=== PATIENT | female | born 1970 | race Caucasian/White ===

== ENCOUNTER → 2018-07-12 16:01 | Outpatient (CLI) | payer OTHER, SELFPAY ==
--- NOTE | 2018-07-12 16:45 | MRI_ITS ---
STUDY: MRI RIGHT ANKLE WITHOUT CONTRAST REASON FOR EXAM: Female, 47 years old. Right-sided ankle sprain with anterior ankle pain for 4 weeks. TECHNIQUE: Standardized fat and water weighted pulse sequences were obtained in all 3 orthogonal planes. COMPARISON: Prior comparison studies are not available for review at this time. FINDINGS: Normal subcutis adipose space. Normal posterior tibialis tendon. Normal flexor digitorum longus tendon. Normal flexor hallucis longus tendon. Normal peroneus longus and brevis tendons. Normal tibialis anterior tendon. Normal extensor hallucis longus tendon. Normal extensor digitorum longus tendons. There is tendinosis of the Achilles tendon with diffuse tendon thickening, but without a partial, intratendinous, or full-thickness tear. There is thickening of the central cord of the plantar fascia, without a plantar fasciitis or plantar fascial tear, consistent with plantar fascial degeneration. There is a plantar calcaneal spur, but without cancellous marrow edema. Normal intrinsic muscles of the rearfoot. There appears to be a complete tear of the tibiofibular syndesmosis. There also appears to be disruption of the anterior talofibular ligament. Normal subtalar ligaments and sinus tarsi. Normal deltoid ligamentous complexes. Normal plantar calcaneonavicular (spring) ligament. Normal tibiotalar articulation. Normal talar dome. There appear to be erosive changes involving the talus at the calcaneal articulation. Erosions are also visible at the tibial plafond. There are also areas of abnormal signal between the articulations of the cuboid with the fifth and fourth metatarsals as well as articulations between the cuneiforms and metatarsals where there appear to be additional erosions. Does the patient have an inflammatory arthropathy? There appear to be degenerative changes at the talonavicular reticulation with bridging osteophytes and/or enthesophytes. Normal calcaneocuboid articulation. Normal navicular-cuneiform articulations. MRI/Lower Ext Joint Only (Routine) IMPRESSION: 1. Complete disruption of the anterior tibiofibular ligaments as well as the anterior talofibular ligament. 2. Multiple erosive changes at the subtalar articulations, tarsometatarsal articulations, and at the tibial plafond with associated abnormal marrow signal. 3. Sequela of Achilles tendinopathy and plantar fasciitis. 4. Incidental note is made of prominent varicosities of the medial ankle. Electronically Signed: Gabby Garcia MD at 9:25 EDT , Service support ,
--- NOTE | 2018-07-12 17:30 | MRI_ITS ---
HISTORY: RIGHT foot pain regla area of 1st toe, sprain , injury 4 weeks ago TECHNIQUE: Multiplanar and multisequence MR images of the right foot. IV Contrast dosage and agent: COMPARISON: None FINDINGS: Osteoarthritis of the right first MTP joint with small effusion. Asymmetric edema of the medial sesamoid compatible with chronic sesamoiditis or possibly healing fracture. Adjacent localized subcortical cyst formation and edema of the plantar and medial aspect of the first MTP head. The plantar plates appear intact. No tenosynovitis or tendinosis. No Tucker's neuroma. MRI/Lower Ext/No Jt/w/o IMPRESSION: 1. Osteoarthritis with small effusion of the right first MTP joint. Details above. 2. Asymmetric edema of the medial sesamoid, first MTP joint, representing reactive sesamoiditis or possibly healing sesamoid fracture. at [id number] Reported and signed by: Cristobal Yuan MD Electronically Signed: Cristobal Yuan, at 4:44 EDT Tel , Service support ,
== END ==
PROVIDERS: Family Provider Family Medicine; PCP Family Medicine; Referring Provider Family Medicine; Visit Provider Family Medicine
DX: S93.601A Unspecified sprain of right foot, initial encounter (principal); S93.401A Sprain of unspecified ligament of right ankle, initial encounter
CPT/HCPCS: 73718; 73721

== ENCOUNTER → 2018-08-01 10:59 | Outpatient (CLI) | payer OTHER, SELFPAY ==
[2018-08-01 10:23] VITALS: BMI 23.6
[2018-08-01 12:18] LABS: Absolute Lymphocyte Count 1.22 X10^3/ul (0.83-4.51); Absolute Neutrophil Count 2.7 X10^3/uL (2.0-7.7); Hematocrit 42.3 % (37-47); Hemoglobin 14.3 g/dl (12.0-15.0); Lymphocyte # 1.22 X10^3/ul (4.0); Lymphocyte % 28.9 % (19-41); Mean Corp Hgb Conc 33.8 g/gl (32-36); Mean Corpuscular Hgb 31.8 pg (27.0-32.0); Mean Platelet Vol. 10.8 fl (6.2-12.0); Monocyte# 0.32 X10^3/uL; Monocyte% 7.6 % (0-10); Neutrophil # 2.68 X10^3/uL (2.7-7.7); Neutrophil % 63.5 % (47-70); Platelet Count 199 K/mm3 (150-450); RBC Distribution Width SD 45.1 fl (35.1-43.9); White Blood Count 4.2 K/mm3 (4.4-11.0)
[2018-08-01 12:29] LABS: POSITIVE COUNT NO; POSITIVE DIFFERENTIAL NO; POSITIVE MORPHOLOGY NO
[2018-08-01 12:40] LABS: ALB/GLOB Ratio 1.4 RATIO (0.9-2.4); AST(SGOT) 13 U/L (15-37); Alanine Aminotransfer ALT/SGPT 19 U/L (13-56); Alkaline Phosphatase 61 U/L (45-117); Anion Gap 7 (5-15); BUN 16 mg/dL (7-18); BUN/Creat Ratio 19.6 RATIO (10-20); Calcium,Total 8.7 mg/dL (8.5-10.1); Chloride 104 mmol/L (98-107); Creatinine, Serum 0.82 mg/dL (0.55-1.02); EST Glomerular Filtration Rate 79 mL/min (>60); Est Glom Filt Rate - Afr Amer 95 mL/min (>60); Globulin 2.9 g/dL (2.2-4.2); Glucose 90 mg/dL (74-106); Potassium 4.4 mmol/L (3.5-5.1); Protein, Total 6.9 g/dL (6.4-8.2); Sodium Level 140 mmol/L (136-145); Thyroid Stim Hormone (TSH) 3.69 uIU/mL (0.358-3.74)
== END ==
PROVIDERS: Family Provider Family Medicine; PCP Family Medicine; Visit Provider Nurse Practitioner Family
DX: Z01.818 Encounter for other preprocedural examination (principal)
CPT/HCPCS: 36415; 80053; 84443; 85025

== ENCOUNTER → 2018-08-07 09:47 | Outpatient (CLI) | payer OTHER, SELFPAY ==
[2018-08-01 10:23] VITALS: BMI 23.6
== END ==
PROVIDERS: Family Provider Family Medicine; PCP Family Medicine; Referring Provider Nurse Practitioner Family; Visit Provider Nurse Practitioner Family
DX: G47.10 Hypersomnia, unspecified (principal); R06.83 Snoring
CPT/HCPCS: 95806

== ENCOUNTER 2018-08-27 09:22 | Day surgery (SDC) | payer OTHER, SELFPAY ==
[2018-08-01 10:23] VITALS: BMI 23.6
[2018-08-26 10:11] VITALS: BMI 23.2
[2018-08-27] VITALS (9 sets, daily range): BP systolic 116–128; BP diastolic 72–87; PULSE 60–83; RESP 16–18; TEMP 36.3–36.6; O2SAT 100; BMI 24.1
--- NOTE | 2018-08-27 09:37 | EKG12_ITS ---
Test Reason : PREOP Blood Pressure : / mmHG Vent. Rate : 067 BPM Atrial Rate : 067 BPM P-R Int : 170 ms QRS Dur : 072 ms QT Int : 396 ms P-R-T Axes : 040 054 054 degrees QTc Int : 418 ms Normal sinus rhythm with sinus arrhythmia Normal ECG No previous ECGs available Confirmed by FABIEN CABRERA ([id number]), assistant film editor JUDY NEGRON ([id number]) on 09/02/2018 2:35:42 PM Referred By: Herminia Rosario Confirmed By:GLORIA CABRERA
[2018-08-27] MEDS: Cefazolin 2 GM in 0.9% Normal Saline 100 ML IV (10:53)
--- NOTE | 2018-08-27 11:05 | RAD_ITS ---
STUDY: Fluoroscopy 6 views RIGHT ANKLE REASON FOR EXAM: Female, 47 years old. Intraoperative 6 view study right ankle TECHNIQUE: 6 fluoroscopic view(s) of the ankle. The provided fluoroscopy time 73.5 seconds. COMPARISON: None. FINDINGS: An intraoperative series is provided with fluoroscopy demonstrating open reduction internal fixation of the right ankle. RAD/Ankle min 3 Views IMPRESSION: Intraoperative study showing the progress of open reduction internal fixation right ankle. Electronically Signed: Livier Bates MD at 19:50 EDT Tel , Service support ,
--- NOTE | 2018-08-27 12:48 | DCINST_ITS ---
Discharge Activity: May Not Drive, May not drive while taking narcotic pain medications., May Not Shower, Use Walker, Use Crutches Ice area for (Minutes): 20 - apply ice behind right knee 20 minutes of each hour while awake Weight Bearing Status: No weight bearing Keep extremity elevated above heart level: Operative Extremity Call your doctor if your incision/area has: Sudden Increased Bleeding Call your doctor if you observe: Fever of 101 or Higher, Shortness of breath, Dizziness, Chest pain, Increased palpitations (irregular heartbeat), Calf discomfort, Uncontrolled pain Cleanse incision/area with: Keep Dressing Clean & Dry Allergies/Adverse Reactions: Allergies No Known Allergies Allergy (Verified 08/27/18 10:00) Medications to take at Discharge Ibuprofen 600 mg PO PRN PRN 08/21/18 Hydrocodone Bitart/Apap 5-325 [Sargeant 5MG-325MG] 1 tab PO Q4H PRN PRN 7 Days #28 tab 08/27/18 The following prescriptions were given: Hydrocodone Bitart/Apap 5-325 [Sargeant 5MG-325MG] 1 tab PO Q4H PRN PRN 7 Days #28 tab PRN Reason: Pain Primary Care Physician: Topher Vidal DO [Primary Care Provider] - Test Results: Test results from this visit will be discussed in further detail at your follow- up appointment, if applicable. Please Follow Up With: Herminia Rosario DPM When: Please follow up next week at your previously scheduled post operative appt Proposed Discharge Date: 08/27/18
--- NOTE | 2018-08-27 12:48 | PCM.OPRPT ---
Report of Operation Date of Procedure: 08/27/18 Pre-Operative Diagnosis: R ATFL complete rupture, R syndesmotic disruption/rupture Post-Operative Diagnosis: same Surgery/Procedure Performed:: R ankle stress views on intraoperative fluoroscopy; R modified Brostrum repair; R trans-syndesmotic screw fixation Description of Surgical Findings:: see dictation immigration lawyer: Dipak Solomon Type of Anesthesia:: General/Regional Estimated Blood Loss (mL): minimal Description of Procedure: Indications: Pt hardy saavedra is a 47 yo F who sustained a right ankle injury while at work on June 11, 2018. She was seen by a physician who diagnosed her with an ankle sprain and she was treated for several weeks conservatively. When her symptoms did not improve as expected she was sent for an MRI on 07/12/2018 which revealed a torn ATFL and syndesmosis. She presented to my office and surgical intervention was discussed and planned. She presents today for surgical intervention. All risks, complications, and alternatives were discussed with the patient, and the patient signed an informed consent. No guarantees were given. Procedure: On 08/27/18, Araceli Og was visually and verbally identified in the preoperative holding area. The consent form was again reviewed with the patient, as were all risks, complications, and alternatives and the patient wished to proceed with the proposed surgery. The right was marked as the correct operative extremity. The patient was brought to the operating room and placed on the operating room table in the normal SUPINE position. After induction by anesthesia, a surgical time out was performed and all present were in agreement. a pneumatic thigh tourniquet was then placed. At this time the right lower extremity was prepped and draped in the usual sterile fashion. after exsanguination with an esmarch the tourniquet was inflated to 300 mmHg. At this time attention was directed to the right lateral ankle. Using a #15 blade a curvilinear incision was made over the distal fibula and extending distally to exposed the ATFL insertion site on the fibula tip.The incision was bluntly carried deep through the subcutaneous tissues with careful attention paid to all bleeders, which were clamped and tied or bovied as necessary. All vital neurovascular structures were retracted. The ATFL was noted to be attenuated. a lateral view of the ankle was performed and then compared to the anterior drawer stress view and the anterior drawer was noted to be positive. I returned to the AP position. I then performed varus and valgus stress views which were negative. Using a bone hook at the tibiofibular joint I performed a cotton stress view that showed increased gapping of the syndesmosis. The incision was carried proximally to better exposed the distal fibula for screw fixation. A malleoloar reduction clamp was applied. Two 3.5mm cortical screws were placed from the lateral fibula to the medial cortex of the tibia. The screws were parallel to the tibiotalar joint and across tibiofibular joint. Good fixation was noted. The cotton hook test was repeated and no syndesmotic gapping was noted. Attention was then returned to the distal fibula/ATFL. Two Drift Sonic Anchors were placed in line with the orientation of the ATFL with Fiber Force. The anchors had a solid fixation. A modified Brostrum was then performed in a pants over vest fashion while the foot was held in eversion. The anterior stress view was repeated and negative. The incision was flushed with copious amounts of normal sterile saline and closure was initiated. 2.0 vicryl was used for deep tissues, 3.0 vicryl for subcutaneous tissues and 3.0 prolene for skin. Betadine soaked adaptic and dry, sterile dressings were placed on the incision. While the foot was held in eversion, a multi-layer compressive dressing was applied to aid in reduction of edema and pain with a well padded posterior splint. Total tourniquet time was 70 minutes with immediate capillary refill noted to all digits upon deflation. Intra operative fluoroscopy was utilized throughout the case, > 1 hour, to aid in visualization and confirmation of screw position and length as well as for stress view pre and post repair. Interpretation of the images was vital to my decision making process. The patient tolerated the procedure and anesthesia well. The patient was then transported to the postanesthesia care unit by a member of the anesthesia team and myself with all vital signs stable and neurovascular status of the right lower extremity equal to pre-operative levels. At the end of the case all sponge, needle and instrument counts were found to be correct. Grafts/Implants Used: Isaiah 3.5mm screws x 2; Isaiah Sonic [place] with Fiber Force x 2 - Complications none - Admit VTE Documentation VTE Present on Admission: No VTE Mechan Device Prophylaxis: SCD's, Knee High GERRY Hose VTE Pharm Prophylaxis ordered?: Yes
--- NOTE | 2018-08-27 12:50 | RAD_ITS ---
STUDY: X-RAY - RIGHT ANKLE REASON FOR EXAM: Female, 47 years old. Postoperative. TECHNIQUE: 3 view(s) of the ankle. COMPARISON: None. FINDINGS: 2 osseous screws are seen spanning the distal tibiofibular junction. No evidence of hardware failure or loosening. Ankle mortise appears intact. No discrete fracture noted throughout. Overlying cast material is noted. Soft tissue swelling is seen. RAD/Ankle min 3 Views IMPRESSION: As detailed above Electronically Signed: Kenneth Golden DO at 14:02 EDT Tel , Service support ,
[2018-08-27] MEDS: Ketorolac 15 MG/ML Vial IV (12:53)
[2018-08-27] MEDS: Scopolamine 1mg/72hr Patch 1 PATCH TD (15:50)
== END 2018-08-27 17:50 | disposition home or self-care (01) ==
LOC: SDC 09:25 → AC 09:26
PROVIDERS: Family Provider Family Medicine; PCP Family Medicine; Referring Provider Podiatrist Foot & Ankle Surgery; Visit Provider Podiatrist Foot & Ankle Surgery
PROC: (CPT 27698; principal; 2018-08-27 10:45)
DX: S93.431A Sprain of tibiofibular ligament of right ankle, initial encounter (principal); X58.XXXA Exposure to other specified factors, initial encounter; Y93.89 Activity, other specified; Y92.89 Other specified places as the place of occurrence of the external cause; Y99.0 Civilian activity done for income or pay; S93.491A Sprain of other ligament of right ankle, initial encounter; R40.0 Somnolence; R06.83 Snoring; D22.9 Melanocytic nevi, unspecified
CPT/HCPCS: 27698; 27829; 64445; 73610; 76000; 93005; C1713; J7120; J2405

== ENCOUNTER → 2018-11-22 | Outpatient (CLI) | payer OTHER, SELFPAY ==
[2018-11-22 07:43] VITALS: BMI 24.1
[2018-11-22 12:27] LABS: Erythrocyte Sedimentation Rate 1 mm/hr (0-30)
[2018-11-22 12:53] LABS: Rheumatoid Factor < 10.0 IU/mL (<15)
[2018-11-26 14:07] LABS: ANTINUCLEAR ANTIBODIES DIRECT Negative (Negative)
[2018-11-26 14:28] LABS: CCP IgG Antibodies 5 units (0-19)
== END | disposition home or self-care (01) ==
LOC: BIMLAB 08:23
PROVIDERS: Family Provider Family Medicine; PCP Family Medicine; Visit Provider Nurse Practitioner Family
DX: M25.571 Pain in right ankle and joints of right foot (principal); M79.89 Other specified soft tissue disorders
CPT/HCPCS: 36415; 85652; 86038; 86200; 86225; 86235; 86431

== ENCOUNTER → 2019-06-09 09:57 | Outpatient (CLI) | payer OTHER, SELFPAY ==
[2019-05-28 14:17] VITALS: BMI 23.4
[2019-06-09 12:35] LABS: Cholesterol 193 mg/dL (200); High Density Lipoprotein 76 mg/dL; Triglycerides 40 mg/dL; Very Low Density Lipoprotein 8 mg/dL (5-40)
[2019-06-09 13:19] LABS: Hepatitis C Antibody Non-Reactive (Nonreactive)
== END ==
PROVIDERS: PCP Family Medicine; Referring Provider Family Medicine; Visit Provider Family Medicine
DX: Z00.00 Encounter for general adult medical examination without abnormal findings (principal)
CPT/HCPCS: 36415; 80061; 86803

== ENCOUNTER 2019-07-09 10:19 | Day surgery (SDC) | payer OTHER, SELFPAY ==
[2019-05-28 14:17] VITALS: BMI 23.4
[2019-06-11 10:14] VITALS: BMI 23.4
--- NOTE | 2019-06-25 10:10 | EKG12_ITS ---
Test Reason : PRE-OP Blood Pressure : / mmHG Vent. Rate : 065 BPM Atrial Rate : 065 BPM P-R Int : 160 ms QRS Dur : 082 ms QT Int : 386 ms P-R-T Axes : 028 035 042 degrees QTc Int : 401 ms Normal sinus rhythm Normal ECG Confirmed by ALL SINGH ([id number]), editorial assistant JESSA JAY ([id number]) on 06/25/2019 3:08:09 PM Referred By: Jose Garcia Confirmed By:ALL SINGH
[2019-06-25 10:34] LABS: Absolute Lymphocyte Count 1.27 X10^3/uL (0.83-4.51); Absolute Neutrophil Count 2.9 X10^3/uL (2.0-7.7); Hematocrit 40.9 % (37-47); Hemoglobin 13.7 g/dL (12.0-15.0); Lymphocyte # 1.27 X10^3/ul (4.0); Lymphocyte % 28.4 % (19-41); Mean Corp Hgb Conc 33.5 g/dL (32-36); Mean Corpuscular Hgb 30.9 pg (27.0-32.0); Mean Corpuscular Volume 92.3 fL (81-99); Mean Platelet Vol. 10.2 fl (6.2-12.0); Monocyte# 0.33 X10^3/uL; Monocyte% 7.4 % (0-10); NRBC Flagged by Analyzer 0 % (0-5); Neutrophil # 2.86 X10^3/uL (2.7-7.7); Platelet Count 186 K/mm3 (150-450); RBC Distribution Width CV 12.3 % (11.6-14.6); RBC Distribution Width SD 42.1 fl (35.1-43.9); Red Blood Count 4.43 M/mm3 (4.2-5.4); White Blood Count 4.5 K/mm3 (4.4-11.0)
--- NOTE | 2019-06-25 10:38 | RAD_ITS ---
STUDY: X-RAY CHEST REASON FOR EXAM: Female, 48 years old. Pre-op for pelvic surgery TECHNIQUE: PA and lateral views of the chest. COMPARISON: 2008 FINDINGS: The lungs are clear and expanded. There is no demonstrated pleural abnormality. Normal size heart. Normal mediastinum and alcira. Normal visualized pulmonary arteries. Normal visualized aortic arch and descending thoracic aorta. Normal visualized thoracic spine. Normal visualized ribs, clavicles, and shoulders. There is no demonstrated abnormality of the visualized soft tissue structures of the upper abdomen. RAD/Chest PA and Lateral IMPRESSION: Normal x-ray examination of the chest. Electronically Signed: Isaiah Leon MD at 10:49 EST , Service support ,
[2019-06-25 10:44] LABS: International Normalized Ratio 1.1; Partial Thromboplast Time 27.6 Seconds (24.1-36.2); Prothrombin Time (Protime)PT. 13.6 SECONDS (11.7-14.9)
[2019-06-25 11:02] LABS: ALB/GLOB Ratio 1.4 RATIO (0.9-2.4); AST(SGOT) 13 U/L (15-37); Alanine Aminotransfer ALT/SGPT 21 U/L (13-56); Albumin, Serum 4.2 g/dL (3.2-5.0); Alkaline Phosphatase 64 U/L (45-117); Anion Gap 4 (5-15); BUN 15 mg/dL (7-18); BUN/Creat Ratio 17.6 RATIO (10-20); Calcium,Total 8.9 mg/dL (8.5-10.1); Chloride 106 mmol/L (98-107); Creatinine, Serum 0.85 mg/dL (0.55-1.02); EST Glomerular Filtration Rate 75 mL/min (>60); Est Glom Filt Rate - Afr Amer 90 mL/min (>60); Glucose 71 mg/dL (74-106); Potassium 4.3 mmol/L (3.5-5.1); Protein, Total 7.2 g/dL (6.4-8.2); Sodium Level 140 mmol/L (136-145)
[2019-06-25 11:28] LABS: Hemoglobin A1c 5.5 % (4.2-6.3)
[2019-07-09 10:40] VITALS: BP 117/67; PULSE 64; RESP 15; TEMP 36.7; O2SAT 100; BMI 23.6
[2019-07-09] MEDS: Lactated Ringers 1,000 ML 100 ML IV ×2 (10:50→15:35)
--- NOTE | 2019-07-09 12:00 | RAD_ITS ---
STUDY: X-RAY - RIGHT ANKLE REASON FOR EXAM: Female, 48 years old. RIGHT ANKLE JOINT ARTHRO W REPAIR, TARSAL TUNNEL RELE TECHNIQUE: 1 view(s) of the ankle. COMPARISON: Prior study of 08/27/2018 FINDINGS: Single intraoperative view There has been interval removal of 2 screws traversing the distal fibular and tibial metaphyses on the previous study. Normal medial and lateral malleoli. Normal tibiotalar articulation and ankle mortise. Normal visualized talus and calcaneus. The visualized subtalar, talonavicular, calcaneocuboid and tarsal articulations are normal. The soft tissue structures are unremarkable. RAD/Ankle 2 Views IMPRESSION: Interval removal of orthopedic screws traversing the distal fibular and tibial metaphyses on the previous study. A total of 33 seconds of fluoroscopy time was used. Estimated radiation dose 0.336 mGy. Electronically Signed: Oswaldo Belcher MD at 16:20 EDT , Service support ,
[2019-07-09] MEDS: Cefazolin 2 GM in 0.9% Normal Saline 100 ML IV (12:15)
[2019-07-09 15:26] VITALS: BP 117/67; BP 97/66; PULSE 66; RESP 16; TEMP 36.8; O2SAT 99
--- NOTE | 2019-07-09 15:29 | DCINST_ITS ---
Discharge Diet: No Restrictions Discharge Activity: May Not Drive, May Not Shower, Use Walker, Use Crutches Weight Bearing Status: No weight bearing Keep extremity elevated above heart level: Right Leg Additional Activity Instructions:: 1. Keep the dressing clean, dry, intact to the right foot leg. Do not get dressing wet and do not remove dressing. If get dressing wet, call office for further instructions. I recommend sponge bathing until further notice. Ice around right knee 20 minutes on, 20 minutes off, every hour while you are awake for the next 7 days. Elevate right foot above level of heart as much as possible over the next 7 days. No walking or standing on right foot. Use crutches or walker for assistance. Begin taking Percocet (pain medication) July 08. Can supplement Percocet with [id number] ibuprofen as needed. If you do take ibuprofen, please take with food. Begin taking the aspirin 1 time a day tomorrowJuly 09. Begin taking doxycycline (antibiotic) tomorrow, July 09. This will be twice a day. Call your doctor if your incision/area has: Continuous Slow Oozing, Increased Pain/ Swelling Call your doctor if you observe: Fever of 101 or Higher, Coldness, Increased Pain, Shortness of breath, Dizziness, Chest pain, Increased palpitations (irregular heartbeat), Calf discomfort, Uncontrolled pain Cleanse incision/area with: Do not get Incision Wet, Keep Dressing Clean & Dry Allergies/Adverse Reactions: Allergies No Known Allergies Allergy (Verified 07/09/19 10:39) Medications to take at Discharge Ibuprofen 600 mg PO PRN PRN 08/21/18 Primary Care Physician: Topher Vidal DO [Primary Care Provider] - Test Results: Test results from this visit will be discussed in further detail at your follow- up appointment, if applicable. Please Follow Up With: Jose Garcia DPM When: 1 week Proposed Discharge Date: 07/09/19
[2019-07-09 15:30] VITALS: BP 117/67; BP 97/78; PULSE 62; RESP 16; O2SAT 98
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
--- NOTE | 2019-07-09 15:40 | RAD_ITS ---
STUDY: X-RAY - RIGHT ANKLE REASON FOR EXAM: Female, 48 years old. POST OP HARDWARE REMOVAL TECHNIQUE: 2 view(s) of the ankle. COMPARISON: Previous study of earlier this date FINDINGS: There are demonstrated cortical defects in the distal tibial and fibular metaphyses where orthopedic hardware previously existed. Normal medial and lateral malleoli. Normal tibiotalar articulation and ankle mortise. There is a plantar aspect calcaneal spur. The visualized subtalar, talonavicular, calcaneocuboid and tarsal articulations are normal. The soft tissue structures are unremarkable. RAD/Ankle 2 Views IMPRESSION: Cortical defects of the distal tibial and fibular metaphyses where orthopedic hardware had previously existed. No fracture is identified. Electronically Signed: Oswaldo Belcher MD at 16:09 EDT , Service support ,
[2019-07-09 15:46] VITALS: BP 110/52; BP 117/67; PULSE 63; RESP 16; TEMP 36.8; O2SAT 97
[2019-07-09] MEDS: traMADol 50 MG Tablet PO (16:09)
[2019-07-09 16:55] VITALS: BP 105/64; BP 117/67; PULSE 66; RESP 16; TEMP 37.2; O2SAT 100
== END 2019-07-09 17:03 | disposition home or self-care (01) ==
LOC: SDC 10:20 → AC 10:21
PROVIDERS: PCP Family Medicine; Referring Provider Podiatrist Foot & Ankle Surgery; Visit Provider Podiatrist Foot & Ankle Surgery
DX: T84.84XA Pain due to internal orthopedic prosthetic devices, implants and grafts, initial encounter (principal); Y83.1 Surgical operation with implant of artificial internal device as the cause of abnormal reaction of the patient, or of later complication, without mention of misadventure at the time of the procedure; Z47.2 Encounter for removal of internal fixation device; G57.51 Tarsal tunnel syndrome, right lower limb; M19.071 Primary osteoarthritis, right ankle and foot; M21.961 Unspecified acquired deformity of right lower leg
CPT/HCPCS: 20680; 28035; 29898; 36415; 71046; 73600; 76000; 80053; 83036; 85025; 85610; 85730; 93005; J7120; J2405; J3490

== ENCOUNTER → 2020-09-08 14:56 | Outpatient (CLI) | payer OTHER, SELFPAY ==
[2020-09-08 14:29] VITALS: BMI 23.6
[2020-09-08 16:32] LABS: Absolute Lymphocyte Count 1.48 X10^3/uL (0.83-4.51); Absolute Neutrophil Count 3.2 X10^3/uL (2.0-7.7); Hemoglobin 13.7 g/dL (12.0-15.0); Lymphocyte # 1.48 X10^3/ul (0.83-4.51); Mean Corp Hgb Conc 33.4 g/dL (32-36); Mean Corpuscular Hgb 31.7 pg (27.0-32.0); Mean Corpuscular Volume 94.9 fL (81-99); Mean Platelet Vol. 10.1 fl (6.2-12.0); Monocyte% 7.8 % (0-10); NRBC Flagged by Analyzer 0 % (0-5); Neutrophil # 3.21 X10^3/uL (2.7-7.7); Neutrophil % 62.8 % (47-70); Platelet Count 219 K/mm3 (150-450); RBC Distribution Width CV 12.3 % (11.6-14.6); RBC Distribution Width SD 43.1 fl (35.1-43.9); Red Blood Count 4.32 M/mm3 (4.2-5.4); White Blood Count 5.1 K/mm3 (4.4-11.0)
[2020-09-08 16:44] LABS: ALB/GLOB Ratio 1.3 RATIO (0.9-2.4); AST(SGOT) 18 U/L (15-37); Alanine Aminotransfer ALT/SGPT 25 U/L (13-56); Alkaline Phosphatase 73 U/L (45-117); Anion Gap 3 (5-15); BUN 12 mg/dL (7-18); BUN/Creat Ratio 14.1 RATIO (10-20); Calcium,Total 9.2 mg/dL (8.5-10.1); Chloride 106 mmol/L (98-107); Cholesterol 233 mg/dL (200); Creatinine, Serum 0.85 mg/dL (0.55-1.02); EST Glomerular Filtration Rate 74 mL/min (>60); Est Glom Filt Rate - Afr Amer 90 mL/min (>60); Globulin 3.1 g/dL (2.2-4.2); Glucose 88 mg/dL (74-106); High Density Lipoprotein 89 mg/dL; Potassium 3.9 mmol/L (3.5-5.1); Protein, Total 7.1 g/dL (6.4-8.2); Sodium Level 141 mmol/L (136-145); Triglycerides 51 mg/dL; Very Low Density Lipoprotein 10 mg/dL (5-40)
== END ==
PROVIDERS: PCP Family Medicine; Referring Provider Family Medicine; Visit Provider Family Medicine
DX: Z00.00 Encounter for general adult medical examination without abnormal findings (principal); I83.819 Varicose veins of unspecified lower extremity with pain; E78.49 Other hyperlipidemia; R51.9 Headache, unspecified
CPT/HCPCS: 36415; 80053; 80061; 85025

== ENCOUNTER → 2020-12-16 | Outpatient (CLI) | payer OTHER, SELFPAY ==
[2020-12-16 09:40] LABS: Mucous, Urine 0 SEEN /hpf (<or=2+)
[2020-12-16 11:16] LABS: Color, Urine Yellow (Yellow); Glucose, Dipstick Normal (Normal); Ketone-Dipstick Negative (Negative); Leukocyte Esterase-Dipstick 500 /ul (Negative); Nitrite-Dipstick Positive (Negative); Occult Blood-Urine 10 /ul (Negative); Protein-Dipstick Negative (Negative); Urine Bilirubin Dipstick Negative (Negative); Urine Clarity Sl. Cloudy (Clear); Urine Urobilinogen Normal (Normal); Urine pH 6.5 (5.0 - 8.0)
[2020-12-16 11:24] LABS: Bacteria 1+ /hpf (None Seen); Red Blood Cells-Urine 0-5 SEEN /hpf (0-5); Squamous Epithelial Cells - UA 0-5 SEEN /hpf (5-10); White Blood Cells 25-50 SEEN /hpf (0-5)
== END | disposition home or self-care (01) ==
LOC: LABSPEC 09:38
PROVIDERS: PCP Family Medicine; Referring Provider Nurse Practitioner Family; Visit Provider Nurse Practitioner Family
DX: R30.0 Dysuria (principal)
CPT/HCPCS: 81001; 87086; 87088; 87186

== ENCOUNTER → 2021-09-28 | Outpatient (CLI) | payer BC, SELFPAY ==
[2021-09-28 16:50] LABS: Absolute Lymphocyte Count 1.24 X10^3/uL (0.83-4.51); Absolute Neutrophil Count 3.3 X10^3/uL (2.0-7.7); Hemoglobin 12.8 g/dL (12.0-15.0); Lymphocyte # 1.24 X10^3/ul (0.83-4.51); Lymphocyte % 25.1 % (19-41); Mean Corp Hgb Conc 33.7 g/dL (32-36); Mean Corpuscular Hgb 31.4 pg (27.0-32.0); Mean Corpuscular Volume 93.1 fL (81-99); Mean Platelet Vol. 10.4 fl (6.2-12.0); Monocyte# 0.39 X10^3/uL; Monocyte% 7.9 % (0-10); NRBC Flagged by Analyzer 0 % (0-5); Neutrophil # 3.29 X10^3/uL (2.7-7.7); Neutrophil % 66.6 % (47-70); Platelet Count 194 K/mm3 (150-450); RBC Distribution Width CV 12.5 % (11.6-14.6); Red Blood Count 4.08 M/mm3 (4.2-5.4); White Blood Count 4.9 K/mm3 (4.4-11.0)
[2021-09-28 17:16] LABS: ALB/GLOB Ratio 1.4 RATIO (0.9-2.4); AST(SGOT) 18 U/L (15-37); Alanine Aminotransfer ALT/SGPT 23 U/L (13-56); Albumin, Serum 3.8 g/dL (3.2-5.0); Alkaline Phosphatase 59 U/L (45-117); Anion Gap 5 (5-15); BUN 14 mg/dL (7-18); BUN/Creat Ratio 17.7 RATIO (10-20); Chloride 106 mmol/L (98-107); Creatinine, Serum 0.79 mg/dL (0.55-1.02); EST Glomerular Filtration Rate 81 mL/min (>60); Est Glom Filt Rate - Afr Amer 98 mL/min (>60); Globulin 2.8 g/dL (2.2-4.2); Glucose 87 mg/dL (74-106); Potassium 3.9 mmol/L (3.5-5.1); Protein, Total 6.6 g/dL (6.4-8.2); Sodium Level 140 mmol/L (136-145); Thyroid Stim Hormone (TSH) 3.33 uIU/mL (0.358-3.74)
[2021-10-03 09:25] LABS: LDL, Direct 120295 130 mg/dL (0-99)
== END | disposition home or self-care (01) ==
LOC: BIMLAB 14:44
PROVIDERS: PCP Family Medicine; Visit Provider Family Medicine
DX: Z00.00 Encounter for general adult medical examination without abnormal findings (principal); E78.49 Other hyperlipidemia
CPT/HCPCS: 36415; 80053; 83721; 84443; 85025

== ENCOUNTER → 2022-02-27 | Outpatient (CLI) | payer BC, SELFPAY ==
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
== END | disposition home or self-care (01) ==
LOC: RAD 15:44
PROVIDERS: PCP Family Medicine; Referring Provider Physician Assistant; Visit Provider Physician Assistant
DX: M54.2 Cervicalgia (principal); M54.50 Low back pain, unspecified; M79.606 Pain in leg, unspecified
CPT/HCPCS: 72050; 72100

== ENCOUNTER → 2022-08-24 | Outpatient (CLI) | payer BC, SELFPAY ==
[2022-08-24 15:33] LABS: ALB/GLOB Ratio 1.7 RATIO (0.9-2.4); AST(SGOT) 17 U/L (15-37); Alanine Aminotransfer ALT/SGPT 22 U/L (13-56); Albumin, Serum 4.3 g/dL (3.2-5.0); Alkaline Phosphatase 62 U/L (45-117); Anion Gap 3 (5-15); BUN 14 mg/dL (7-18); BUN/Creat Ratio 17.3 RATIO (10-20); Calcium,Total 9.5 mg/dL (8.5-10.1); Chloride 108 mmol/L (98-107); Cholesterol 235 mg/dL (200); Creatinine, Serum 0.81 mg/dL (0.55-1.02); EST Glomerular Filtration Rate 79 mL/min (>60); Est Glom Filt Rate - Afr Amer 95 mL/min (>60); Globulin 2.6 g/dL (2.2-4.2); Glucose 87 mg/dL (74-106); High Density Lipoprotein 91 mg/dL; Potassium 4.4 mmol/L (3.5-5.1); Protein, Total 6.9 g/dL (6.4-8.2); Sodium Level 140 mmol/L (136-145); Triglycerides 42 mg/dL; Very Low Density Lipoprotein 8 mg/dL (5-40)
== END | disposition home or self-care (01) ==
LOC: BIMLAB 11:56
PROVIDERS: PCP Family Medicine; Referring Provider Family Medicine; Visit Provider Family Medicine
DX: E78.49 Other hyperlipidemia (principal)
CPT/HCPCS: 36415; 80053; 80061

== ENCOUNTER → 2023-11-21 | Outpatient (CLI) | payer BC, SELFPAY ==
[2023-11-21 12:15] LABS: Absolute Lymphocyte Count 1.11 X10^3/uL (0.83-4.51); Absolute Neutrophil Count 3.1 X10^3/uL (2.0-7.7); Basophil# 0.01 X10^3/uL; Basophil% 0.2 % (0-1); Hematocrit 39.1 % (37-47); Hemoglobin 13.1 g/dL (12.0-15.0); Lymphocyte # 1.11 X10^3/ul (0.83-4.51); Lymphocyte % 24.8 % (19-41); Mean Corp Hgb Conc 33.5 g/dL (32-36); Mean Corpuscular Hgb 31.6 pg (27.0-32.0); Mean Corpuscular Volume 94.2 fL (81-99); Mean Platelet Vol. 10.1 fl (6.2-12.0); Monocyte% 6.7 % (0-10); NRBC Flagged by Analyzer 0 % (0-5); Neutrophil # 3.05 X10^3/uL (2.7-7.7); Neutrophil % 68.1 % (47-70); Platelet Count 218 K/mm3 (150-450); RBC Distribution Width SD 45.1 fl (35.1-43.9); Red Blood Count 4.15 M/mm3 (4.2-5.4); White Blood Count 4.5 K/mm3 (4.4-11.0)
[2023-11-21 12:40] LABS: ALB/GLOB Ratio 1.5 RATIO (0.9-2.4); AST(SGOT) 15 U/L (15-37); Alanine Aminotransfer ALT/SGPT 17 U/L (13-56); Alkaline Phosphatase 51 U/L (45-117); Anion Gap 7 (5-15); BUN 13 mg/dL (7-18); BUN/Creat Ratio 16.2 RATIO (10-20); Calcium,Total 9.2 mg/dL (8.5-10.1); Chloride 108 mmol/L (98-107); Cholesterol 214 mg/dL (200); EST Glomerular Filtration Rate 79 mL/min (>60); Est Glom Filt Rate - Afr Amer 95 mL/min (>60); Globulin 2.6 g/dL (2.2-4.2); Glucose 86 mg/dL (74-106); High Density Lipoprotein 87 mg/dL; Potassium 4.2 mmol/L (3.5-5.1); Protein, Total 6.6 g/dL (6.4-8.2); Sodium Level 141 mmol/L (136-145); Triglycerides 62 mg/dL; Very Low Density Lipoprotein 12 mg/dL (5-40)
== END | disposition home or self-care (01) ==
LOC: BIMLAB 09:57
PROVIDERS: PCP Family Medicine; Referring Provider Family Medicine; Visit Provider Family Medicine
DX: Z00.00 Encounter for general adult medical examination without abnormal findings (principal)
CPT/HCPCS: 36415; 80053; 80061; 85025

== ENCOUNTER → 2024-06-19 | Outpatient (CLI) | payer BC, SELFPAY ==
[2024-06-23 21:07] LABS: Chlamydia By Nucleic Acid AMP Negative (Negative); Gonococcus By Nucleic Acid AMP Negative (Negative)
[2024-06-24 16:08] LABS: HPV APTIMA, High Risk Negative (Negative)
== END | disposition home or self-care (01) ==
LOC: LABSPEC 14:48
PROVIDERS: PCP Family Medicine; Referring Provider Nurse Practitioner Family; Visit Provider Nurse Practitioner Family
DX: N94.89 Other specified conditions associated with female genital organs and menstrual cycle (principal); Z12.4 Encounter for screening for malignant neoplasm of cervix; Z11.3 Encounter for screening for infections with a predominantly sexual mode of transmission
CPT/HCPCS: 87077; 87086; 87088; 87186; 87491; 87591; 87624; 88175; G0145